=== PATIENT | male | born 1980 | race Two or more races ===

== ENCOUNTER 2021-07-19 06:08 | Emergency (ER) | payer BC ==
[~2021-07-19] VITALS: Ht 170.2 cm; Wt 78.6 kg
--- NOTE | 2021-07-19 06:27 | PHYS DOC ---
General Adult HPI: HPI: 41 yo M denies any significant past medical history, presents to the ED with complaints of productive cough, posttussive emesis and sternal chest pain worse with coughing and breathing for the past 3 days. No relief with cold and flu medicaine. States he cannot sleep due to the persistent coughing. Reports it hurts to breathe. Drinks 2 shots of whiskey daily. Not smoke tobacco, has no underlying lung disease. Has been vaccinated for COVID. Also reports associated anorexia. Is wheezing on exam and states he had an inhaler 10 years ago-denies copd or asthma. Review of Systems: Review of Systems: Constitutional: Denies fever or chills. [] Eyes: Denies change in visual acuity. [] HENT: Denies nasal congestion or sore throat. [] Respiratory: Denies hemoptysis or increased work of breathing Cardiovascular: Denies syncope or edema. [] GI: Denies abdominal pain, nausea, vomiting, bloody stools or diarrhea. [] : Denies dysuria or hematuria Musculoskeletal: Denies back pain or joint pain. [] Integument: Denies rash or diaphoresis Neurologic: Denies headache, focal weakness or sensory changes. [] Endocrine: Denies polyuria or polydipsia. [] Lymphatic: Denies swollen glands. [] Psychiatric: Denies depression or anxiety. [] Heart Score: C/O Chest Pain: Yes HEART Score for Chest Pain: HEART Score for Chest Pain Response (Comments) Value History Slighlty/Non-Suspicious 0 ECG Normal 0 Age < 45 0 Risk Factors No Risk Factors 0 Troponin < Normal Limit 0 Total 0 Risk Factors: Risk Factors: DM, Current or recent (<one month) smoker, HTN, HLP, family history of CAD, obesity. Risk Scores: Score 0 - 3: 2.5% MACE over next 6 weeks - Discharge Home Score 4 - 6: 20.3% MACE over next 6 weeks - Admit for Clinical Observation Score 7 - 10: 72.7% MACE over next 6 weeks - Early Invasive Strategies Physical Exam: PE: Constitutional: Well developed, well nourished, no acute distress, non-toxic appearance. HENT: Normocephalic, atraumatic, moist mucous membranes, no pharyngeal erythema or exudates Eyes: EOMI, conjunctiva normal, no discharge. Neck: Normal range of motion, supple, Cardiovascular: S1/2 present, regular rhythm Lungs & Thorax: Speaking in full sentences, bilateral equal chest rise, no tachypnea or increased work of breathing, inspiratory and expiratory wheezing present, no rales or crackles Abdomen: soft, no tenderness, Skin: Warm, dry, no erythema, no rash. [] Extremities: No tenderness, no cyanosis, no lower extremity edema Neurologic: Alert and oriented X 3, normal motor function, normal sensory function, no focal deficits noted. [] Psychologic: Affect normal, judgement normal, mood normal. [] EKG: EKG: Sinus rhythm 84 bpm, no axis deviation, normal intervals, no T wave inversion, ST elevation or ST depression Radiology/Procedures: Radiology/Procedures: IMAGING REPORT Signed PATIENT: SUNI WHALEN ACCOUNT: [id number] : 1980 LOCATION: ER AGE: 41 SEX: M EXAM STATUS: REG ER ORD. PHYSICIAN: FRANCIA JARVIS DO REASON: cough PROCEDURE: PORTABLE CHEST 1V AP chest. HISTORY: Cough AP view was taken of the chest. Lungs are free of acute infiltrates. Heart is normal in size. There is no effusion. IMPRESSION: 1. No acute chest disease. Electronically signed by: Quinn Huitron MD (07/19/2021 7:14 AM) [id number] DICTATED and SIGNED BY: QUINN HUITRON MD DATE: 07/19/21 0713 IMAGING REPORT Signed PATIENT: SUNI WHALEN ACCOUNT: [id number] : 1980 LOCATION: ER AGE: 41 SEX: M EXAM STATUS: REG ER ORD. PHYSICIAN: FRANCIA JARVIS DO REASON: SOA, R/O PE PROCEDURE: CT ANGIOGRAPHY CHEST CT Pulmonary arteriogram: Indication:Shortness of breath, suspected PE Date of Exam:07/19/2021 . Comparison:None available Technique: Contiguous helical acquisitions are obtained through the chest during intravenous administration of 100 cc Omnipaque 350 . Coronal MIP images were obtained and reviewed. FINDINGS: The pulmonary arteries are adequately opacified and are negative for filling defects to suggest pulmonary emboli. No hilar or mediastinal abnormalities are noted. No pericardial pathology is noted and the aorta appears unremarkable. The lungs are clear without infiltrate or mass. The pleural surfaces are smooth and no pleural fluid is seen. The visualized structures of the upper abdomen are unremarkable. Impression: CT pulmonary arteriography fails to reveal pulmonary emboli or other significant pathology. PQRS Compliance Statement: One or more of the following individualized dose reduction techniques were utilized for this examination: 1. Automated exposure control 2. Adjustment of the mA and/or kV according to patient size 3. Use of iterative reconstruction technique Electronically signed by: Joelle Suero MD (07/19/2021 10:52 AM) [facility] DICTATED and SIGNED BY: JOELLE SUERO MD DATE: 07/19/21 1040 Course & Med Decision Making: Course & Med Decision Making Pertinent Labs and Imaging studies reviewed. (See chart for details) Concern for asthma exacerbation, sxs improved after dexamethasone and 3 DuoNeb treatments. On reevaluation patient's lung sounds are clear with no further wheezing. CTA w/no PE or PNA. Rapid Covid and flu negative. Patient sleeping on reevaluation, no respiratory distress. Is hemodynamically stable. Labs unremarkable. Will discharge home with steroids, albuterol rescue inhaler and Flovent for 1 month. Will discharge home with strict ED return precautions were given for increased work of breathing, shortness of breath, chest pain or syncope. Encouraged urgent outpatient follow-up with PMD for reevaluation, consider pulmonology evaluation. Life-threatening processes were considered but are low suspicion at this time, given history, physical exam and ED workup. Pt was educated on all prescription medications and adverse effects. All patient's questions were answered and pt was stable at time of discharge. Life/limb-threatening differential includes but is not limited to, ACS, dysrhythmia, pneumothorax or hemothorax, pulmonary embolus, pneumonia, bronchoconstriction, pulmonary edema, angioedema, epiglottitis, tracheitis, Marcos's angina, RPA/[employer] TUTOR, anaphylaxis, angioedema, cardiac tamponade or murmurs, pericarditis, myocarditis, poisoning or toxicity, sepsis or autoimmune/neurologic disease. I have spoken with the patient and/or caregivers. I explained the patient's condition, diagnoses and treatment plan based on the information available to me at this time. I have answered the patient and/or caregiver's questions and addressed any concerns. The patient and/or caregivers have a good understanding of patient's diagnosis, condition and treatment plan as can be expected at this point. Vital signs have been stable. Patient's condition is stable and appropriate for discharge from the emergency department. Patient will pursue further outpatient evaluation with primary care physician or other designated or consulting physician as outlined in the discharge instructions. The patient and/or caregivers are agreeable to this plan of care and follow-up instructions have been explained in detail. The patient and/or caregivers have received these instructions in written form and have expressed an understanding of the discharge instructions. The patient and/or caregivers are aware that any significant change of condition or worsening of symptoms should prompt immediate return to this or the closest emergency department or call to 911. Madyson Disclaimer: Madyson Disclaimer: This electronic medical record was generated, in whole or in part, using a voice recognition dictation system. Departure Departure Impression: Primary Impression: Wheezing without diagnosis of asthma Disposition: HOME / SELF CARE / HOMELESS Condition: STABLE Referrals: NO PCP (PCP) Follow-up with your primary care physician in 24 to 48 hours OR FOLLOW UP WITH FAMILY MEDICINE: [address], [address] [place] [address] Patient Instructions: Asthma Prevention-Brief, Asthma, Adult Additional Instructions: FOLLOW UP WITH PULMONOLOGY: FOR DEFINITIVE MANAGEMENT/diagnosis of asthma [facility] [address] [place] [address] EMERGENCY DEPARTMENT GENERAL DISCHARGE INSTRUCTIONS Thank you for coming to [facility] Emergency Department (ED) today and trusting us with you care. We trust that you had a positive experience in our Emergency Department. If you wish to speak to the department management, you may call the Director at [phone]. YOUR FOLLOW UP INSTRUCTIONS ARE FOLLOWS: 1. Do you have a private Doctor? If you do not have a private doctor, please ask for a resource list of physicians or clinics that may be able to assist you with follow up care. 2. The Emergency Physicain has interpreted your x-rays. The X-Ray specialist will also review them. If there is a change in the findings, you will be notified in 48 hours when at all possible. 3. A lab test or culture has been done, your results will be reviewed and you w ill be notified if you need a change in treatment. ADDITIONAL INSTRUCTIONS AND INFORMATION: 1. Your care today has been supervised by a physician who is specially trained in emergency care. Many problems require more than one evaluation for a complete diagnosis and treatment. We recommend that you schedule your follow up appointment as recommended to ensure complete treatment of you illness or injury. If you are unable to obtain follow up care and continue to have a problem, or if your condition worsens, we recommend that you return to the ED. 2. We are not able to safely determine your condition over the phone nor are we able to give sound medical advice over the phone. For these safety reasons, if you call for medical advice we will ask you to come to the ED for further evaluation. 3. If you have any questions regarding these discharge instructions please call the ED at [phone]. SAFETY INFORMATION: In the interest of safety, wellness, and injury prevention; we encourage you to wear your sealbelt, if you smoke; quite smoking, and we encourage family to use a protective helmet for bicycling and other sporting events that present an increased risk for head injury. IF YOUR SYMPTOMS WORSEN OR NEW SYMPTOMS DEVELOP, OR YOU HAVE CONCERNS ABOUT YOUR CONDITION; OR IF YOUR CONDITION WORSENS WHILE YOU ARE WAITING FOR YOUR FOLLOW UP APPOINTMENT; EITHER CONTACT YOUR PRIMARY CARE DOCTOR, THE PHYSICIAN WHOSE NAME AND NUMBER YOU WERE GIVEN, OR RETURN TO THE ED IMMEDIATELY. Scripts Fluticasone Propionate (FLOVENT 44MCG HFA) 10.6 Gm Aer.w.adap 2 PUFF IH BID for 30 Days, #10.6 GM 0 Refills Prov: FRANCIA JARVIS DO 07/19/21 Albuterol Sulfate (VENTOLIN HFA INHALER) 18 Gm Hfa.aer.ad 2 PUFF INH QID for FOR ASTHMA, #1 INHALER 0 Refills Prov: FRANCIA JARVIS DO 07/19/21 Prednisone (PREDNISONE) 50 Mg Tablet 1 TAB PO DAILY for 4 Days, #4 TAB Prov: FRANCIA JARVIS DO 07/19/21 FRANCIA JARVIS DO Jul 19, 2021 06:27
[2021-07-19 06:39] LABS: BASO # 0.1 x10^3/uL (0.0-0.2); BASO % 1 % (0-3); EOS # 0.6 x10^3/uL (0.0-0.7); EOS % 6 % (0-3); HEMATOCRIT 51.8 % (39.0-53.0); HEMOGLOBIN 16.9 g/dL (13.0-17.5); LYMPH # 1.3 x10^3/uL (1.0-4.8); LYMPH % 13 % (24-48); MEAN CORPUSCULAR HEMOGLOBIN 28 pg (25-35); MEAN CORPUSCULAR HGB CONC 33 g/dL (31-37); MEAN CORPUSCULAR VOLUME 85 fL (79-100); MONO # 0.5 x10^3/uL (0.0-1.1); MONO % 5 % (0-9); NEUT # 7.5 x10^3/uL (1.8-7.7); NEUT % 75 % (31-73); PLATELET COUNT 220 x10^3/uL (140-400); RED BLOOD COUNT 6.11 x10^6/uL (4.30-5.70); RED CELL DISTRIBUTION WIDTH 13.3 % (11.5-14.5)
[2021-07-19 06:50] LABS: CALCIUM 8.7 mg/dL (8.5-10.1); CREATININE 1.2 mg/dL (0.7-1.3); GFR 66.4; POTASSIUM 3.8 mmol/L (3.5-5.1)
[2021-07-19 06:56] LABS: ALBUMIN 4.1 g/dL (3.4-5.0); ALBUMIN/GLOBULIN RATIO 1.1 (1.0-1.7); TOTAL BILIRUBIN 0.6 mg/dL (0.2-1.0); TOTAL PROTEIN 7.8 g/dL (6.4-8.2)
[2021-07-19 07:03] LABS: INFLUENZA A PATIENT NEGATIVE (NEGATIVE); INFLUENZA B PATIENT NEGATIVE (NEGATIVE)
--- NOTE | 2021-07-19 07:16 | RAD ---
AP chest. HISTORY: Cough AP view was taken of the chest. Lungs are free of acute infiltrates. Heart is normal in size. There i s no effusion. IMPRESSION: 1. No acute chest disease. Electronically signed by: Quinn Huitron MD (07/19/2021 7:14 AM) [id number]
[2021-07-19] MEDS ORDERED: DEXAMETHASONE SOD PHOS 20 MG/5 ML VIAL. IV ONE (08:00)
[2021-07-19] MEDS ORDERED: KETOROLAC 15 MG/ML VIAL. IVP ONE (08:00)
[2021-07-19] MEDS ORDERED: IPRATRPIUM/ALBUTEROL 0.5/2.5MG 3 ML NEBU. NEB ONE (08:00)
[2021-07-19] MEDS ORDERED: CONTRAST GIVEN. MC PRN (10:30)
[2021-07-19] MEDS ORDERED: IOHEXOL 350 MG/ML 100 ML VIAL. IV ONE (10:30)
--- NOTE | 2021-07-19 10:55 | RAD ---
CT Pulmonary arteriogram: Indication:Shortness of breath, suspected PE Date of Exam:07/19/2021 . Comparison:None available Technique: Contiguous helical acquisitions are obtained through the chest during intravenous administration of 1 00 cc Omnipaque 350 . Coronal MIP images were obtained and reviewed. FINDINGS: The pulmonary arteries are adequately opacified and are negative for filling defects to suggest pulmo nary emboli. No hilar or mediastinal abnormalities are noted. No pericardial pathology is noted and the aorta appears unremarkable. The lungs are clear without infiltrate or mass. The pleural surface s are smooth and no pleural fluid is seen. The visualized structures of the upper abdomen are unrema rkable. Impression: CT pulmonary arteriography fails to reveal pulmonary emboli or other significant pathology. PQRS Compliance Statement: One or more of the following individualized dose reduction techniques were utilized for this examinat ion: 1. Automated exposure control 2. Adjustment of the mA and/or kV according to patient size 3. Use of iterative reconstruction technique Electronically signed by: Joelle Suero MD (07/19/2021 10:52 AM) [facility]
[2021-07-19] MEDS ORDERED: FLUT10.6 IH (11:30)
[2021-07-19] MEDS ORDERED: VENTOLIN HFA18 GM INH (11:30)
[2021-07-19] MEDS ORDERED: PRED50TA PO (11:30)
[2021-07-19 11:34] VITALS: BP 139/78
--- NOTE | 2021-07-19 18:36 | EKG ---
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
== END 2021-07-19 11:40 | disposition home or self-care (01) ==
LOC: ER 06:08
DX: R06.2 Wheezing (principal); Z20.822 Contact with and (suspected) exposure to COVID-19; R11.10 Vomiting, unspecified; R07.2 Precordial pain; R05.9 Cough, unspecified
CPT/HCPCS: 36415; 71045; 71275; 80053; 83880; 84484; 85025; 87428; 93005; 94640; 96374; 96375; 99285; G0480; J1100; J1885; Q9967

== ENCOUNTER 2021-07-21 15:35 | Emergency (ER) | payer BC ==
[~2021-07-21] VITALS: Ht 170.2 cm; Wt 77.2 kg
[~2021-07-21 15:35] MED LIST: FLUT10.6 IH; PRED50TA PO; VENTOLIN HFA18 GM INH
[2021-07-21 16:10] VITALS: BP 143/86
[2021-07-21 17:21] LABS: BACTERIA,URINE 0 /HPF (0-FEW); RBC,URINE 0 /HPF (0-2); WBC,URINE 0 /HPF (0-4)
--- NOTE | 2021-07-21 18:21 | RAD ---
Complete Abdominal Ultrasound: Clinical History: Reason: right side abd pain / Spl. Instructions: / History: Technique: Sonographic examination of the abdomen was performed and multiple static images were obta ined. Findings: Liver: The majority is visualized and appears homogeneous. There is increased echogenicity of liver w hich further limits sensitivity for a possible solid liver lesion. Common bile duct: Appears normal measures 4 mm in diameter. Gallbladder: appears normal. Portal vein: Appears normal. Pancreas: is not well visualized due to overlying bowel gas. Right kidney: appears normal and measures 11 cm in length. Left kidney appears normal and measures 12 cm in length. Spleen: Not enlarged. Impression: Fatty infiltration of the liver. No evidence of gallbladder disease. Electronically signed by: Shimon Chand III, MD (07/21/2021 6:18 PM) [facility]
[2021-07-21] MEDS ORDERED: GUAI118L13 PO ×2 (19:10→20:20)
--- NOTE | 2021-07-21 19:11 | PHYS DOC ---
Past Medical History Past Surgical History: No Surgical History (ELISEO GONZALES GAMING FLOOR SUPERVISOR) Smoking Status: Never Smoker Alcohol Use: None (ELISEO GONZALES GAMING FLOOR SUPERVISOR) General Adult EDM: Chief Complaint: ABDOMINAL PAIN HPI: HPI: Patient is a 41 year old male who presents to the ED today complaining of 9 out of 10 right rib pain, right-sided abdominal pain, symptoms began 3 days ago. Patient states he was seen in the ED 2 days ago and had a diagnosis of asthma, he states he was discharged to home with prednisone and albuterol breathing treatments. He states his cough has gotten worse and the pain from coughing is worse. Denies any chest pain, shortness of breath. Denies any nausea, vomiting, diarrhea. (ELISEO GONZALES GAMING FLOOR SUPERVISOR) Review of Systems: Review of Systems: Constitutional: Denies fever or chills. [] Eyes: Denies change in visual acuity. [] HENT: Denies nasal congestion or sore throat. [] Respiratory: Reports right lower rib pain, denies cough or shortness of davy ath. [] Cardiovascular: Denies chest pain or edema. [] GI: Reports right-sided upper abdominal pain denies nausea, vomiting, bloody stools or diarrhea. [] : Denies dysuria. [] Musculoskeletal: Denies back pain or joint pain. [] Integument: Denies rash. [] Neurologic: Denies headache, focal weakness or sensory changes. [] Psychiatric: Denies depression or anxiety. [] (ELISEO GONZALES GAMING FLOOR SUPERVISOR) Heart Score: C/O Chest Pain: N/A Risk Factors: Risk Factors: DM, Current or recent (<one month) smoker, HTN, HLP, family history of CAD, obesity. Risk Scores: Score 0 - 3: 2.5% MACE over next 6 weeks - Discharge Home Score 4 - 6: 20.3% MACE over next 6 weeks - Admit for Clinical Observation Score 7 - 10: 72.7% MACE over next 6 weeks - Early Invasive Strategies (ELISEO GONZALES GAMING FLOOR SUPERVISOR) Allergies: Allergies: Allergies Coded Allergies Type Severity Reaction Last Updated Verified No Known Drug Allergies 07/21/21 No (ELISEO GONZALES GAMING FLOOR SUPERVISOR) Physical Exam: PE: Constitutional: Well developed, well nourished, no acute distress, non-toxic appearance. [] HENT: Normocephalic, atraumatic, bilateral external ears normal, oropharynx moist, no oral exudates, nose normal. [] Eyes: PERRLA, EOMI, conjunctiva normal, no discharge. [] Neck: Normal range of motion, no tenderness, supple, no stridor. [] Cardiovascular:Heart rate regular rhythm, no murmur [] Lungs & Thorax: Bilateral breath sounds clear to auscultation [] Abdomen: Bowel sounds normal, soft, no tenderness, no masses, no pulsatile masses. [] Skin: Warm, dry, no erythema, no rash. [] Back: No tenderness, no CVA tenderness. [] Extremities: No tenderness, no cyanosis, no clubbing, ROM intact, no edema. [] Neurologic: Alert and oriented X 3, normal motor function, normal sensory function, no focal deficits noted. [] Psychologic: Affect normal, judgement normal, mood normal. [] (ELISEO GONZALES APRN) Current Patient Data: Labs: Laboratory Tests Test 07/21/21 16:50 Urine Color (Auto) Yellow Urine Turbidity Clear Urine pH (Auto) 5.5 (<5.0-8.0) Urine Specific [place] 1.030 (1.000-1.030) Urine Protein (Auto) Negative mg/dL (Negative) Urine Glucose (Auto)(UA) Negative mg/dL (Negative) Urine Ketones (Auto) Negative mg/dL (Negative) Urine Blood (Auto) Negative (Negative) Urine Nitrite Negative (Negative) Urine Bilirubin (Auto) Negative (Negative) Urine Urobilinogen (Auto) Normal mg/dL (Normal) Urine Leukocyte Esterase (Auto) Negative (Negative) Urine RBC 0 /HPF (0-2) Urine WBC 0 /HPF (0-4) Urine Bacteria 0 /HPF (0-FEW) Urine Mucus Marked /LPF Vital Signs: Vital Signs Date Time Temp Pulse Resp B/P (MAP) Pulse Ox O2 Delivery O2 Flow Rate FiO2 07/21/21 16:10 97.8 70 20 143/86 (105) 95 Room Air 97.8 (ELISEO GONZALES GAMING FLOOR SUPERVISOR) EKG: EKG: [] (ELISEO GONZALES APRN) Radiology/Procedures: Radiology/Procedures: []PROCEDURE: ABDOMEN COMPLETE Complete Abdominal Ultrasound: Clinical History: Reason: right side abd pain / Spl. Instructions: / History: Technique: Sonographic examination of the abdomen was performed and multiple static images were obtained. Findings: Liver: The majority is visualized and appears homogeneous. There is increased echogenicity of liver which further limits sensitivity for a possible solid liver lesion. Common bile duct: Appears normal measures 4 mm in diameter. Gallbladder: appears normal. Portal vein: Appears normal. Pancreas: is not well visualized due to overlying bowel gas. Right kidney: appears normal and measures 11 cm in length. Left kidney appears normal and measures 12 cm in length. Spleen: Not enlarged. Impression: Fatty infiltration of the liver. No evidence of gallbladder disease. Electronically signed by: Juan Miguel Stark III, MD (07/21/2021 6:18 PM) [facility] DICTATED and SIGNED BY: JUAN MIGUEL STARK III, MD DATE: 07/21/211806 (ELISEO GONZALES APRN) Course & Med Decision Making: Course & Med Decision Making Pertinent Labs and Imaging studies reviewed. (See chart for details) This is a 41-year-old male patient presenting to the ED today complaining of right lower rib pain/abdominal pain to the right upper quadrant, symptoms have been going on for 3 days, he was seen in the ED 2 days ago had a huge work-up including a CTA chest which was negative, lab work, influenza and Covid test which were negative. Presents today stating the coughing is making his pain worse. Chest x-ray interpreted by Dr. Salcido is negative for any acute findings, right upper quadrant ultrasound is negative. Reassured patient. Discharge to home (ELISEO GONZALES APRN) Course & Med Decision Making Patients Care and treatment plan provided by ER Nurse Practitioner. I was available for consult. Patient's chart reviewed. (CHALINO SALCIDO I DO) Madyson Disclaimer: Madyson Disclaimer: This electronic medical record was generated, in whole or in part, using a voice recognition dictation system. (ELISEO GONZALES APRN) Departure Departure Impression: Primary Impression: Cough Disposition: 01 HOME / SELF CARE / HOMELESS Condition: STABLE Referrals: NO PCP (PCP) follow up with your doctor in 1 week Patient Instructions: Cough, Adult, O[place]v-yn-Graj Additional Instructions: You were evaluated today for cough and rib pain. It is not unusual to have pain in your ribs when coughing. We encourage you to cough and continue taking deep breaths. Continue using the medicines were given in the emergency room 2 days ago. Also take the medicines prescribed today. Follow-up with your doctor in 1 week. Come back to the ED at any point symptoms worsen. Scripts Guaifenesin/Codeine Phosphate (GUAIFENESIN-CODEINE SYRUP) 118 Ml Liquid 5 ML PO Q6HRS, #120 ML Prov: ELISEO GONZALES APRN 07/21/21 Guaifenesin/Codeine Phosphate (GUAIFENESIN-CODEINE SYRUP) 118 Ml Liquid 5 ML PO Q6HRS, #120 ML Prov: ELISEO GONZALES APRN 07/21/21 ELISEO GONZALES APRN Jul 21, 2021 19:11 CHALINO SALCIDO DO Jul 23, 2021 03:49
--- NOTE | 2021-07-21 19:34 | RAD ---
Exam: Left ribs 3 views INDICATION: Rib pain, cough TECHNIQUE: Frontal view of the chest with frontal and oblique views of the right ribs Comparisons: None FINDINGS: The cardiomediastinal silhouette and pulmonary vessels are within normal limits. The lung and pleural spaces are clear. No displaced rib fractures IMPRESSION: 1. No acute cardiopulmonary process. 2. No displaced rib fractures. Electronically signed by: Francisca Manuel MD (07/21/2021 7:31 PM) [facility]
== END 2021-07-21 19:20 | disposition home or self-care (01) ==
LOC: ER 15:35
DX: R05.9 Cough, unspecified (principal); R07.81 Pleurodynia; R10.11 Right upper quadrant pain; K76.0 Fatty (change of) liver, not elsewhere classified
CPT/HCPCS: 71101; 76700; 81001; 99285-25